=== PATIENT | male | born 1985 | race Caucasian/White ===

== ENCOUNTER → 2017-07-28 | Outpatient (CLI) | payer OTHER ==
--- NOTE | 2017-07-28 13:28 | DIAGNOSTIC IMAGING REPORT ---
R EXTREMITY NONVASCULAR LIMITED CLINICAL HISTORY: 32 years-old Male presenting with INT TIBIAS TENDONITIS, R LOWER EXTR SWELLING/MASS. TECHNIQUE: Real-time grayscale ultrasound imaging of the right lower leg was performed for a focused examination of right lower extremity swelling and concern for tibial tendinitis. Color Doppler was also performed. COMPARISON: None. FINDINGS: At the site of clinical interest, mild subcutaneous tissue thickening may be present. No severely dilated lymphatics to suggest severe edema. Superficial vein is noted in this region which is patent on color Doppler. No focal fluid collection. Musculature normal appearing. IMPRESSION: 1. No significant sonographic abnormality other than mild subcutaneous soft tissue swelling. Electronically signed by: Edgar Barillas M.D. 07/28/2017 1:26 PM Dictated Date/Time: 07/28/2017 1:25 PM
== END | disposition home or self-care (01) ==
LOC: C.ULTR 12:49
PROVIDERS: ATTEND Internal Medicine
DX: M76.811 Anterior tibial syndrome, right leg (principal); R22.41 Localized swelling, mass and lump, right lower limb